=== PATIENT | male | born 1980 | race Caucasian/White ===

== ENCOUNTER 2016-09-18 10:37 | Emergency (ER) | payer MEDICARE, MEDICAID ==
[~2016-09-18] VITALS: Ht 175.3 cm; Wt 99.8 kg
[~2016-09-18 10:37] MED LIST: IPRA4AER IH; ONDA4TAB7 PO; OXYC-250 PO; PRED50TA PO; PROAIR HFA8.5 GM IH
[2016-09-18 10:41] VITALS: BP 131/72
--- NOTE | 2016-09-18 11:36 | EKG ---
[facility] [address] [place] [address] Test Date: 2016-09-18 Test Time: 10:40:13 Pat Name: CECI PAYNE Department: Room: Gender: M Oncology Social Work: : 1980 Requested By: STAFF NON Order Number: [id number] Reading MD: Elenita Taylor Measurements Intervals [place] Rate: 118 P: 79 ID: [id number] QRS: -29 QRSD: 92 T: 69 QT: 310 QTc: 437 Interpretive Statements SINUS TACHYCARDIA LEFTWARD AXIS INCOMPLETE RIGHT BUNDLE BRANCH BLOCK T ABNORMALITY IN HIGH LATERAL LEADS Electronically Signed On 09-20-2016 0:33:29 PROOF SORTER by Elenita Taylor
[2016-09-18] MEDS ORDERED: IV NORMAL SALINE 1000ML BAG 1,000 ML IV SCH (12:07)
[2016-09-18] MEDS ORDERED: methylPREDNISolone SOD SUCC PF 125 MG/2 ML VIAL. IV ONE (12:15)
[2016-09-18] MEDS ORDERED: IPRATRPIUM/ALBUTEROL 0.5/2.5MG 3 ML NEBU. NEB ONE (12:15)
[2016-09-18 12:40] LABS: OBC FLU VALID
[2016-09-18 12:48] LABS: BASO # 0.1 x10^3/uL (0.0-0.2); BASO % 1 % (0-3); EOS % 1 % (0-3); HEMATOCRIT 48.6 % (39.0-53.0); LYMPH # 1.4 x10^3/uL (1.0-4.8); LYMPH % 16 % (24-48); MEAN CORPUSCULAR HEMOGLOBIN 28 pg (25-35); MEAN CORPUSCULAR HGB CONC 33 g/dL (31-37); MEAN CORPUSCULAR VOLUME 84 fL (79-100); MONO % 10 % (0-9); NEUT % 72 % (31-73); PLATELET COUNT 165 x10^3/uL (140-400); RED BLOOD COUNT 5.77 x10^6/uL (4.30-5.70); RED CELL DISTRIBUTION WIDTH 15.6 % (11.5-14.5); WHITE BLOOD COUNT 8.6 x10^3/uL (4.0-11.0)
[2016-09-18 13:02] LABS: CALCIUM 9.7 mg/dL (8.5-10.1); POTASSIUM 4.4 mmol/L (3.5-5.1)
--- NOTE | 2016-09-18 13:07 | RAD ---
Portable chest, 09/18/2016: History: Cough, shortness of breath Comparison is made to a study from 06/08/2015. The heart size and pulmonary vascularity are within normal limits. No pulmonary infiltrates are seen. There is a calcified granuloma in the right base. There is no evidence of pleural fluid. IMPRESSION: No acute cardiopulmonary abnormality is detected.
[2016-09-18 13:08] LABS: ALBUMIN 3.9 g/dL (3.4-5.0); TOTAL BILIRUBIN 0.4 mg/dL (0.2-1.0)
[2016-09-18] MEDS ORDERED: PRED20TA PO (13:36)
[2016-09-18] MEDS ORDERED: PROAIR HFA8.5 GM INH (13:36)
--- NOTE | 2016-09-18 13:36 | PHYS DOC ---
Past Medical History Past Medical History: Asthma, COPD Additional Past Medical Histor: CMT, chronic back pain, NERVE DISORDER Past Surgical History: Other Additional Past Surgical Histo: ear tubes, ADENOIDS Alcohol Use: None Drug Use: None Adult General Chief Complaint Chief Complaint: SHORTNESS OF BREATH HPI HPI Patient is a 36 year old male who comes to the ED from home with the complaint of shortness of air today. Patient states he has COPD. He often takes prednisone but ran out about a month ago. When he takes it, he is on 20 mg daily. He also takes albuterol treatments at home, he does have a nebulizer. His last one was this morning. He has home oxygen for nighttime use. He's had a cough and also states he has had a fever to 101.6. The patient also has multiple other complaints. He states "I've been vomiting and pooping blood". He had a bleeding ulcer 3 months ago when he was hospitalized in [facility]. He had endoscopy and they "fixed it". He states he had to have 4 units of blood at that time. He had previously been on warfarin for history of pulmonary embolus but they took him off of it as a result of this bleed. Patient currently does not have a primary care physician. 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 Review of Systems Review of Systems Constitutional: As in history of present illness Eyes: Denies change in visual acuity, redness, or eye pain [] HENT: Denies nasal congestion or sore throat [] Respiratory: As in history of present illness Cardiovascular: No chest pain GI: As in history of present illness : Denies dysuria or hematuria [] Musculoskeletal: Denies back pain or joint pain [] Integument: Denies rash or skin lesions [] Neurologic: Denies headache, focal weakness or sensory changes [] Current Medications Current Medications Current Medications Medications (Trade) Dose Ordered Sig/Dipti Start Time Stop Time Status Last Admin Dose Admin Albuterol/ Ipratropium (Duoneb) 3 ml 1X ONCE 09/18/16 12:15 09/18/16 12:16 DC 09/18/16 12:21 3 ML Methylprednisolone Sodium Succinate (Solu-Medrol 125mg Vial) 60 mg 1X ONCE 09/18/16 12:15 09/18/16 12:16 DC 09/18/16 12:47 60 MG Sodium Chloride (Iv Sodium Chloride 0.9% 1000ml Bag) 1,000 ml @ 1,000 mls/hr Q1H 09/18/16 12:07 09/18/16 13:06 DC 09/18/16 12:47 1,000 MLS/HR Allergies Allergies Allergies Coded Allergies Type Severity Reaction Last Updated Verified Penicillins Allergy Intermediate hives 12/12/14 Yes tramadol Allergy Intermediate MORPHINE OK 12/12/14 No ibuprofen Adverse Reaction Intermediate "makes my stomach hurt, but I can take morphine" 12/12/14 No Physical Exam Physical Exam Constitutional: Well developed, well nourished, no acute distress, non-toxic appearance. Alert, mentating normally. Patient appears comfortable, not dyspneic , speaks in full sentences. HENT: Normocephalic, atraumatic, bilateral external ears normal, oropharynx moist, no oral exudates, nose normal. [] Eyes: conjunctiva normal, no discharge. [] Neck: Normal range of motion, no stridor. [] Cardiovascular:Heart rate regular rhythm, no murmur [] Lungs & Thorax: Expiratory wheezes throughout with good breath sounds in all lung kaur Abdomen: Bowel sounds normal, soft, no tenderness, no masses, no pulsatile masses. [] Skin: Warm, dry, no erythema, no rash. [] Extremities: No tenderness, no cyanosis, no clubbing, ROM intact, no edema. [] Neurologic: Alert and oriented X 3, normal motor function, normal sensory function, no focal deficits noted. [] Current Patient Data Vital Signs Vital Signs Date Time Temp Pulse Resp B/P Pulse Ox O2 Delivery O2 Flow Rate FiO2 09/18/16 14:00 100 20 99 Nasal Cannula 2 09/18/16 10:41 97.9 131/72 97.9 Lab Values Laboratory Tests Test 09/18/16 12:08 09/18/16 12:40 Influenza Type A Antigen Negative (NEGATIVE) Influenza Type B Antigen Negative (NEGATIVE) White Blood Count 8.6x10^3/uL (4.0-11.0) Red Blood Count 5.77x10^6/uL (4.30-5.70) H Hemoglobin 16.0g/dL (13.0-17.5) Hematocrit 48.6% (39.0-53.0) Mean Corpuscular Volume 84fL (79-100) Mean Corpuscular Hemoglobin 28pg (25-35) Mean Corpuscular Hemoglobin Concent 33g/dL (31-37) Red Cell Distribution Width 15.6% (11.5-14.5) H Platelet Count 165x10^3/uL (140-400) Neutrophils (%) (Auto) 72% (31-73) Lymphocytes (%) (Auto) 16% (24-48) L Monocytes (%) (Auto) 10% (0-9) H Eosinophils (%) (Auto) 1% (0-3) Basophils (%) (Auto) 1% (0-3) Neutrophils # (Auto) 6.1x10^3uL (1.8-7.7) Lymphocytes # (Auto) 1.4x10^3/uL (1.0-4.8) Monocytes # (Auto) 0.8x10^3/uL (0.0-1.1) Eosinophils # (Auto) 0.1x10^3/uL (0.0-0.7) Basophils # (Auto) 0.1x10^3/uL (0.0-0.2) Sodium Level 137mmol/L (136-145) Potassium Level 4.4mmol/L (3.5-5.1) Chloride Level 98mmol/L (98-107) Carbon Dioxide Level 32mmol/L (21-32) Anion Gap 7 (6-14) Blood Urea Nitrogen 8mg/dL (8-26) Creatinine 1.0mg/dL (0.7-1.3) Estimated GFR (Cockcroft-Gault) 85.0 BUN/Creatinine Ratio 8 (6-20) Glucose Level 84mg/dL (70-99) Calcium Level 9.7mg/dL (8.5-10.1) Total Bilirubin 0.4mg/dL (0.2-1.0) Aspartate Amino Transferase (AST) 16U/L (15-37) Alanine Aminotransferase (ALT) 24U/L (16-63) Alkaline Phosphatase 93U/L (46-116) Total Protein 8.0g/dL (6.4-8.2) Albumin 3.9g/dL (3.4-5.0) Albumin/Globulin Ratio 1.0 (1.0-1.7) Laboratory Tests 09/18/16 12:40 Laboratory Tests 09/18/16 12:40 EKG EKG 12-lead EKG read by me. Sinus tachycardia. Heart rate 118. There are no acute ST or T wave changes indicative of ischemia or infarction. No STEMI. 1040 [] Radiology/Procedures Radiology/Procedures Chest x-ray read by the radiologist no acute cardiopulmonary process. [] Course & Med Decision Making Course & Med Decision Making Pertinent Labs and Imaging studies reviewed. (See chart for details) 36-year-old male with a history of COPD who does have oxygen at home and also a nebulizer at home. He has had a fever, cough, and wheezing. He has not had prednisone in a month. He does continue to smoke. Lab and x-ray evaluation negative for pneumonia or other concerning finding today. He had 2 breathing treatments and felt quite a bit better. He is resting comfortably in the ED, no dyspnea, speaking in full sentences. He is comfortable being discharged. He was given information about primary care physician's here at [facility]. [] Dragon Disclaimer Dragon Disclaimer This electronic medical record was generated, in whole or in part, using a voice recognition dictation system. Departure Departure Impression: Primary Impression: Bronchitis Additional Impression: COPD exacerbation Disposition: HOME, SELF-CARE Condition: STABLE Referrals: NO PCP (PCP) Patient Instructions: Smoking Cessation, Tips For Success Additional Instructions: Take breathing treatments every 4 hours while awake until feeling better. I highly recommend that you do everything you can to quit smoking. It's important to have a primary care doctor, see below sure with names and phone numbers that we provided you. Scripts Prednisone 20 Mg Tablet1 Tab PO DAILY #5 TAB One daily for wheezing Start Prov:EARLINE CHIU MD 09/18/16 Albuterol Sulfate (Proair Hfa Inhaler)8.5 Gm Hfa.[id number].[id number] Puff INH PRN Q6HRS PRN SHORTNESS OF BREATH #1 INHALER Ref 0 2 puffs every 4 hours as needed for wheezing Use this or your nebulizer machine, not both Prov:EARLINE CHIU MD 09/18/16 Problem Qualifiers EARLINE CHIU MD Sep 18, 2016 13:36
== END 2016-09-18 14:06 | disposition home or self-care (01) ==
LOC: ER 10:37
DX: J44.1 Chronic obstructive pulmonary disease with (acute) exacerbation (principal); J40 Bronchitis, not specified as acute or chronic; J45.909 Unspecified asthma, uncomplicated; G89.29 Other chronic pain; R50.9 Fever, unspecified; F17.200 Nicotine dependence, unspecified, uncomplicated; Z99.81 Dependence on supplemental oxygen; Z86.711 Personal history of pulmonary embolism; Z88.0 Allergy status to penicillin; Z88.5 Allergy status to narcotic agent; Z88.8 Allergy status to other drugs, medicaments and biological substances
CPT/HCPCS: 36415; 71010; 80053; 85027; 87804; 93005; 94250; 94640; 96361; 96374; 99285; J2930; J7030; J7620

== ENCOUNTER 2016-10-01 19:58 | Inpatient (IN) | payer MEDICARE, MEDICAID ==
[~2016-10-01] VITALS: Ht 175.3 cm; Wt 108.5 kg
[~2016-10-01 19:58] MED LIST changes: +PRED20TA PO; +PROAIR HFA8.5 GM INH
[2016-10-01] MEDS ORDERED: IV NORMAL SALINE 1000ML BAG 1,000 ML IV SCH (20:35)
--- NOTE | 2016-10-01 20:35 | PHYS DOC ---
Past Medical History Past Medical History: Asthma, COPD, Additional Disease Additional Past Medical Histor: CMT, chronic back pain, NERVE DISORDER, pulmonary embolism Past Surgical History: Other Additional Past Surgical Histo: ear tubes, ADENOIDS Alcohol Use: None Drug Use: None Adult General Chief Complaint Chief Complaint: SHORTNESS OF BREATH HPI HPI Patient is a 36 year old male who presents with chest pain and shortness of breath. Patient reports he was recently admitted to [facility], where he was diagnosed with a pulmonary embolism. He says he was discharged with prescription of warfarin, which she has been taking the past 2 days. He also reports she has been tweaking 20 mg of prednisone for the past 2 days for a COPD exacerbation. He describes a sharp pain in left side of his chest that is worse with movement. He also reports feeling short of breath for the past week. In addition, he says for the past 2 days he has been having a small amount of blood per rectum. He has not taken anything for pain prior to coming to emergency department. Review of Systems Review of Systems Constitutional: Denies fever or chills Eyes: Denies change in visual acuity or eye pain HENT: Denies nasal congestion or sore throat Respiratory: Shortness of breath Cardiovascular: Sharp L sided chest pain GI: Blood in stool. Denies abdominal pain, nausea, vomiting, diarrhea : Denies dysuria or hematuria Musculoskeletal: Denies back pain or joint pain Integument: Denies rash or skin lesions Neurologic: Denies headache, focal weakness or sensory changes Current Medications Current Medications Current Medications Medications (Trade) Dose Ordered Sig/Dipti Start Time Stop Time Status Last Admin Dose Admin Albuterol/ Ipratropium (Duoneb) 3 ml 1X ONCE 10/01/16 20:45 10/01/16 21:00 DC 10/01/16 20:56 3 ML Morphine Sulfate 4 mg 1X ONCE 10/01/16 20:45 10/01/16 21:00 DC 10/01/16 20:55 4 MG Prednisone (Prednisone) 40 mg 1X ONCE 10/01/16 20:45 10/01/16 21:00 DC 10/01/16 20:54 40 MG Sodium Chloride (Iv Sodium Chloride 0.9% 1000ml Bag) 1,000 ml @ 1,000 mls/hr Q1H 10/01/16 20:35 10/01/16 21:34 DC 10/01/16 20:56 1,000 MLS/HR Allergies Allergies Allergies Coded Allergies Type Severity Reaction Last Updated Verified Penicillins Allergy Intermediate hives 12/12/14 Yes tramadol Allergy Intermediate MORPHINE OK 12/12/14 No ibuprofen Adverse Reaction Intermediate "makes my stomach hurt, but I can take morphine" 12/12/14 No Physical Exam Physical Exam Constitutional: Well developed, well nourished, no acute distress, non-toxic appearance HENT: Normocephalic, atraumatic, bilateral external ears normal Eyes: EOMI, conjunctiva normal, no discharge Neck: Normal range of motion, no stridor Cardiovascular: Tachycardic, regular rhythm, no murmur Lungs & Thorax: Tight, diffuse expiratory wheezing Abdomen: Bowel sounds normal, soft, non-distended, no TTP Rectal: Small amount brown stool in vault, no gross blood Skin: Warm, dry, no erythema, no rash Extremities: No obvious deformity, no edema Neurologic: Alert and oriented X 3, no gross deficits noted Current Patient Data Vital Signs Vital Signs Date Time Temp Pulse Resp B/P Pulse Ox O2 Delivery O2 Flow Rate FiO2 10/01/16 20:55 27 96 Room Air 10/01/16 20:52 2.5 10/01/16 20:17 115 138/71 10/01/16 20:03 98.5 98.5 Lab Values Laboratory Tests Test 10/01/16 20:15 10/01/16 21:33 White Blood Count 15.9x10^3/uL (4.0-11.0) H Red Blood Count 5.23x10^6/uL (4.30-5.70) Hemoglobin 14.5g/dL (13.0-17.5) Hematocrit 43.0% (39.0-53.0) Mean Corpuscular Volume 82fL (79-100) Mean Corpuscular Hemoglobin 28pg (25-35) Mean Corpuscular Hemoglobin Concent 34g/dL (31-37) Red Cell Distribution Width 16.0% (11.5-14.5) H Platelet Count 232x10^3/uL (140-400) Neutrophils (%) (Auto) 81% (31-73) H Lymphocytes (%) (Auto) 15% (24-48) L Monocytes (%) (Auto) 5% (0-9) Eosinophils (%) (Auto) 0% (0-3) Basophils (%) (Auto) 0% (0-3) Neutrophils # (Auto) 12.8x10^3uL (1.8-7.7) H Lymphocytes # (Auto) 2.3x10^3/uL (1.0-4.8) Monocytes # (Auto) 0.7x10^3/uL (0.0-1.1) Eosinophils # (Auto) 0.0x10^3/uL (0.0-0.7) Basophils # (Auto) 0.0x10^3/uL (0.0-0.2) Segmented Neutrophils % 81% (35-66) H Band Neutrophils % 1% (0-9) Lymphocytes % 15% (24-48) L Monocytes % 3% (0-10) Platelet Estimate Adequate (ADEQUATE) Prothrombin Time 11.1SEC (11.7-14.0) L Prothrombin Time INR 0.9 (0.8-1.1) PTT 22SEC (24-38) L Sodium Level 136mmol/L (136-145) Potassium Level 4.4mmol/L (3.5-5.1) Chloride Level 99mmol/L (98-107) Carbon Dioxide Level 27mmol/L (21-32) Anion Gap 10 (6-14) Blood Urea Nitrogen 21mg/dL (8-26) Creatinine 1.0mg/dL (0.7-1.3) Estimated GFR (Cockcroft-Gault) 85.0 Glucose Level 185mg/dL (70-99) H Calcium Level 8.8mg/dL (8.5-10.1) Total Bilirubin 0.2mg/dL (0.2-1.0) Direct Bilirubin < 0.1mg/dL (0.0-0.2) Aspartate Amino Transferase (AST) 19U/L (15-37) Alanine Aminotransferase (ALT) 45U/L (16-63) Alkaline Phosphatase 79U/L (46-116) Troponin I Quantitative < 0.017ng/mL (0.000-0.055) Total Protein 7.1g/dL (6.4-8.2) Albumin 3.3g/dL (3.4-5.0) L Stool Occult Blood Positive (NEG) Laboratory Tests 10/01/16 20:15 Laboratory Tests 10/01/16 20:15 EKG EKG EKG (my read): sinus tachycardia, rate 120, borderline LAD, no acute ischemic changes Radiology/Procedures Radiology/Procedures CXR (my read): 5mm opacity L lateral lung field, otherwise no acute abnormality Course & Med Decision Making Course & Med Decision Making Pertinent Labs and Imaging studies reviewed. (See chart for details) Patient is 36-year-old male who presents with chest pain and shortness of breath. He reports that he was recently diagnosed with PE, and started on warfarin. Chest x-ray, EKG, labs ordered to evaluate. DuoNeb's and dose of steroids ordered for wheezing. IV fluid bolus and pain meds ordered for relief of symptoms. I decided to obtain records from OSH rather than repeat CTA chest to save patient from additional radiation and contrast. EKG shows sinus tachycardia. Chest x-ray results as above. Labs notable for INR 0.9. Leukocytosis likely due to steroid use. Hemoglobin within normal limits. Discussed results with patient. After deliberation, decision made to start heparin while arranging records from [facility] for treatment of PE given subtherapeutic INR; PE considered to be higher risk than small amount of occult blood in stool given normal hemoglobin level. Heparin chosen for ability to quickly discontinue if GI bleed became more serious. However, prior to heparin and given the records from outside hospital arrived which showed that the CTA that was done did not reveal PE. Therefore, ordered for heparin stopped. Patient does however remained tachycardic and symptomatic. Discussed with Dr. Michel, will admit under her care for further evaluation and treatment. Dragon Disclaimer Dragon Disclaimer This electronic medical record was generated, in whole or in part, using a voice recognition dictation system. Departure Departure Impression: Primary Impression: Chest pain Additional Impression: SOB (shortness of breath) Disposition: 09 ADMITTED INPATIENT Admitting Physician: Edward Michel Condition: GUARDED Referrals: NO PCP (PCP) Problem Qualifiers RAISSA NEW MD Oct 01, 2016 20:35
[2016-10-01] MEDS ORDERED: PREDNISONE 20 MG TABLET PO ONE (20:45)
[2016-10-01] MEDS ORDERED: IPRATRPIUM/ALBUTEROL 0.5/2.5MG 3 ML NEBU. NEB ONE (20:45)
[2016-10-01] MEDS ORDERED: MORPHINE SULFATE 4 MG/ML DISP.SYRIN. IV ONE (20:45)
[2016-10-01 20:46] LABS: BASO % 0 % (0-3); EOS % 0 % (0-3); HEMOGLOBIN 14.5 g/dL (13.0-17.5); LYMPH # 2.3 x10^3/uL (1.0-4.8); LYMPH % 15 % (24-48); MEAN CORPUSCULAR HEMOGLOBIN 28 pg (25-35); MEAN CORPUSCULAR HGB CONC 34 g/dL (31-37); MEAN CORPUSCULAR VOLUME 82 fL (79-100); MONO % 5 % (0-9); NEUT % 81 % (31-73); PLATELET COUNT 232 x10^3/uL (140-400); RED BLOOD COUNT 5.23 x10^6/uL (4.30-5.70); WHITE BLOOD COUNT 15.9 x10^3/uL (4.0-11.0)
[2016-10-01 20:56] LABS: INR 0.9 (0.8-1.1); PROTHROMBIN TIME PATIENT 11.1 SEC (11.7-14.0)
[2016-10-01 21:01] LABS: ANION GAP 10 (6-14); BLOOD UREA NITROGEN 21 mg/dL (8-26); CALCIUM 8.8 mg/dL (8.5-10.1); CARBON DIOXIDE 27 mmol/L (21-32); CHLORIDE 99 mmol/L (98-107); GLUCOSE 185 mg/dL (70-99); POTASSIUM 4.4 mmol/L (3.5-5.1); SODIUM 136 mmol/L (136-145)
[2016-10-01 21:07] LABS: ALBUMIN 3.3 g/dL (3.4-5.0); ALK PHOS 79 U/L (46-116); ALT (SGPT) 45 U/L (16-63); AST (SGOT) 19 U/L (15-37); DIRECT BILIRUBIN < 0.1 mg/dL (0.0-0.2); TOTAL BILIRUBIN 0.2 mg/dL (0.2-1.0); TOTAL PROTEIN 7.1 g/dL (6.4-8.2)
[2016-10-01 21:52] LABS: PLT ESTIMATE ADEQUATE (ADEQUATE)
[2016-10-01 21:54] LABS: NEG OBC FOB NEG; POS OBC FOB POS
[2016-10-01] MEDS ORDERED: ONDANSETRON PF 4 MG/2 ML VIAL. IV PRN (23:15)
[2016-10-01] MEDS ORDERED: HEPARIN for IV BOLUS 10,000 UNIT/10 ML VIAL. IV ONE (23:15)
[2016-10-01] MEDS ORDERED: ACETAMINOPHEN 325 MG TABLET. PO PRN (23:15)
[2016-10-01] MEDS ORDERED: HEPARIN 25,000UTS/500ML PREMIX 500 ML IV PRN (23:15)
[2016-10-01] MEDS ORDERED: HEPARIN for IV BOLUS 10,000 UNIT/10 ML VIAL. IV PRN ×2 (23:15)
[2016-10-02 00:30] VITALS: BP 133/86
[2016-10-02 01:33] VITALS: BP 133/86
[2016-10-02 03:00] VITALS: BP 130/80
[2016-10-02] MEDS: MORPHINE SULFATE 4 MG/ML DISP.SYRIN. IV PRN ×2 (03:03→08:40)
[2016-10-02 05:18] LABS: BASO % 0 % (0-3); EOS % 0 % (0-3); HEMATOCRIT 42.4 % (39.0-53.0); HEMOGLOBIN 13.8 g/dL (13.0-17.5); LYMPH % 9 % (24-48); MEAN CORPUSCULAR HEMOGLOBIN 27 pg (25-35); MEAN CORPUSCULAR HGB CONC 32 g/dL (31-37); MEAN CORPUSCULAR VOLUME 84 fL (79-100); MONO % 3 % (0-9); NEUT % 88 % (31-73); PLATELET COUNT 198 x10^3/uL (140-400); RED BLOOD COUNT 5.04 x10^6/uL (4.30-5.70); WHITE BLOOD COUNT 11.3 x10^3/uL (4.0-11.0)
[2016-10-02 06:09] LABS: CALCIUM 9.3 mg/dL (8.5-10.1); CREATININE 0.9 mg/dL (0.7-1.3); POTASSIUM 4.8 mmol/L (3.5-5.1)
--- NOTE | 2016-10-02 06:24 | EKG ---
[facility] [address] [place] [address] Test Date: 2016-10-01 Test Time: 20:08:48 Pat Name: CECI PAYNE Department: Room: 558 1 Gender: M Nursing Assistant: : 1980 Requested By: RAISSA NEW Order Number: [id number] Reading MD: Jewel Marvin Measurements Intervals [place] Rate: 120 P: 3 MN: 138 QRS: 0 QRSD: 88 T: 62 QT: 298 QTc: 426 Interpretive Statements SINUS TACHYCARDIA Electronically Signed On 10-14-2016 9:30:14 BOTTLE LABELER by Jewel Marvin
[2016-10-02 07:00] VITALS: BP 125/81
--- NOTE | 2016-10-02 08:04 | RAD ---
Portable chest, 10/01/2016: History: Shortness of breath Comparison is made to a study from 09/18/2016. The heart size and pulmonary vascularity are normal. There is a calcified granuloma in the right base. No acute infiltrates are seen. There is no evidence of pleural fluid. IMPRESSION: No acute cardiopulmonary abnormality is detected.
[2016-10-02] MEDS: IPRATRPIUM/ALBUTEROL 0.5/2.5MG 3 ML NEBU. NEB SCH ×3 (08:11→15:18)
[2016-10-02] MEDS ORDERED: IOHEXOL 350 MG/ML 100ML VIAL. IV ONE (09:45)
[2016-10-02] MEDS ORDERED: CONTRAST GIVEN MC PRN (09:45)
[2016-10-02] MEDS ORDERED: IOHEXOL 300 MG/ML 75 ML VIAL IV ONE (10:15)
--- NOTE | 2016-10-02 10:28 | DISCH ---
DISCHARGE INSTRUCTIONS Condition on Discharge Condition on Discharge: Stable Activity After Discharge Activity Instructions for Disc: No restrictions Diet after Discharge Diet after Discharge: [place] Contacting the DR. after DC Call your doctor for: If your condition worsens Follow-Up Follow up with: PCp in 1 week [place] GARCIA MD Oct 02, 2016 10:28
[2016-10-02] MEDS ORDERED: GUAI600T38 PO (10:32)
[2016-10-02] MEDS ORDERED: PANT20TA2 PO (10:32)
[2016-10-02 10:55] VITALS: BP 126/78
--- NOTE | 2016-10-02 14:40 | RAD ---
Exam performed: CT angiogram chest. History: Chest and back pain, shortness of air for one week. Date of service: 10/02/16. Comparison: CT chest from 03/15/09. Technique: Contiguous helical acquisitions are obtained through the chest during intravenous administration of 75 cc of Omnipaque 300. Flash and coronal MIP images are obtained and reviewed. Findings: Structures at the thoracic inlet including both lobes of the thyroid gland appear normal. The neck and intrathoracic great vessels are normal in course and caliber. Adequate opacification of the pulmonary arteries. No filling defects to suggest pulmonary embolism is noted. No mediastinal or hilar adenopathy seen. Central airways patent without endoluminal lesions. Interrogation of lungs demonstrates no focal infiltrates or nodules. No pleural effusion or pneumothorax. Impression: 1. Study is negative for pulmonary embolism. 2. No additional abnormality seen. PQRS Compliance Statement: One or more of the following individualized dose reduction techniques were utilized for this examination: 1. Automated exposure control 2. Adjustment of the mA and/or kV according to patient size 3. Use of iterative reconstruction technique
[2016-10-02 14:52] VITALS: BP 99/45
--- NOTE | 2016-10-02 19:02 | SSS ---
ADMIT DATE: 10/02/2016 CHIEF COMPLAINT: Chest pain. HISTORY OF PRESENT ILLNESS: The patient is a 36-year-old gentleman who presented to the Emergency Room with chest pain associated with some shortness of breath. On further questioning, he actually relates that he has had symptoms for quite a while and had been recently admitted at for pneumonia and COPD exacerbation and is still on steroids. Prior to his admission, he was actually at [facility] where he apparently had been found with a PE. He had been started on warfarin there, but according to him, medication was stopped when he was found to be bleeding from his rectum. He has not been on any blood thinners since. In the Emergency Room, OB stool was still positive. CTA of the chest was not repeated in the ER. PAST MEDICAL HISTORY: PE as above, COPD with recent exacerbation, Uaaxalc-Wjzuh-Aftgp disease. FAMILY HISTORY: Significant for COPD in sibs. Father of lung cancer. SOCIAL HISTORY: Lives by himself. Quit smoking 9 months ago. Denies any toxic habits. ALLERGIES: PENICILLIN, IBUPROFEN, and TRAMADOL. MEDICATIONS: MAR reconciled with home medications. REVIEW OF SYSTEMS: Essentially positive as per HPI. Also, has some cough which worsens the chest pain. Cough remains productive and has been going on for several weeks. PHYSICAL EXAMINATION: VITAL SIGNS: From today show a blood pressure of 126/78, heart rate at 95, respiratory rate at 18. He is afebrile, satting 97 on room air. GENERAL: This is an obese 36-year-old gentleman, alert and oriented, in no acute distress. HEENT: Shows no scleral icterus. Oral mucosa is pink and moist. NECK: Supple. LUNGS: Clear to auscultation bilaterally. HEART: Regular rate and rhythm without any murmurs. ABDOMEN: Has positive bowel sounds, soft, nontender. EXTREMITIES: Show no edema. LABORATORY DATA: CBC from today shows a WBC of 11.3, decreased from 15.9 yesterday; hemoglobin 13.8, platelets at 198, BUN and creatinine of 22 and 0.9. Electrolytes within normal limits as are LFTs. Troponin was negative. Occult stool positive. IMAGING: Chest x-ray obtained in the Emergency Room showed no acute cardiopulmonary abnormality. CTA of the chest was negative for any PE. ASSESSMENT AND PLAN: The patient is a 36-year-old gentleman with Slqsygg-Zroww-Oxxjs disease, hypertension, chronic obstructive pulmonary disease, and recent pneumonia as well as reported history of pulmonary embolism. Not on anticoagulation secondary to gastrointestinal bleed. Chest pain is not new for him. I have a suspicion that he is drug seeking as he is specifically asking for Codeine. With negative findings otherwise, he is cleared to be discharged today. DISCHARGE DATE: 10/02/2016. DISCHARGE DISPOSITION: To home. DISCHARGE CONDITION: Improved. DISCHARGE DIAGNOSES: Chest wall pain. DISCHARGE MEDICATIONS: Please refer to MAR. DISCHARGE INSTRUCTIONS: The patient will follow up with PCP GEORGE. [place] GARCIA MD DR: UR/nts JOB#: [id number] / [id number] XIOMARA
== END 2016-10-02 17:00 | disposition home or self-care (01) | DRG 313 ==
LOC: ER 19:58 → 5 SOUTH 22:59
PROVIDERS: ADMIT Internal Medicine; ATTEND Internal Medicine
DX: R07.89 Other chest pain (principal); K62.5 Hemorrhage of anus and rectum; Z86.711 Personal history of pulmonary embolism; J44.9 Chronic obstructive pulmonary disease, unspecified; G60.0 Hereditary motor and sensory neuropathy; Z82.5 Family history of asthma and other chronic lower respiratory diseases; Z80.1 Family history of malignant neoplasm of trachea, bronchus and lung; Z87.891 Personal history of nicotine dependence; E66.9 Obesity, unspecified; I10 Essential (primary) hypertension; J45.909 Unspecified asthma, uncomplicated; Z87.01 Personal history of pneumonia (recurrent); Z88.6 Allergy status to analgesic agent; Z68.35 Body mass index [BMI] 35.0-35.9, adult; Z88.5 Allergy status to narcotic agent; Z88.0 Allergy status to penicillin; Z79.899 Other long term (current) drug therapy; Z98.890 Other specified postprocedural states
CPT/HCPCS: 36415; 71010; 71275; 80048; 80076; 82274; 84484; 85007; 85027; 85610; 85730; 93005; 94250; 94640; 94760; 96361; 96374; J2270; J7030; J7512; J7620; Q9967; 99285-25

== ENCOUNTER 2017-02-02 13:34 | Inpatient (IN) | payer MEDICARE, MEDICAID ==
[~2017-02-02] VITALS: Ht 175.3 cm; Wt 105.4 kg
[~2017-02-02 13:34] MED LIST changes: +GUAI600T38 PO; +PANT20TA2 PO
--- NOTE | 2017-02-02 14:07 | RAD ---
Indication: Weakness and chest pain. Time of exam 1400 hours. Correlation is made with prior chest from 10/01/2016. The heart size is stable. Calcified granuloma right lower lobe is unchanged. Lungs are clear. No infiltrate is detected. No effusion or pneumothorax is seen. Impression: Stable chest. No acute feature is detected.
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
[2017-02-02] MEDS ORDERED: ONDANSETRON PF 4 MG/2 ML VIAL. IV PRN (15:00)
[2017-02-02] MEDS ORDERED: NON FORMULARY ITEM (Albuterol Sulfate (Proair Hfa Inhaler) 1 PUFF) INH PRN (16:15)
[2017-02-02] MEDS ORDERED: NON FORMULARY ITEM (Albuterol Sulfate (Proair Hfa Inhaler) 2 PUFF) IH PRN (16:15)
[2017-02-02] MEDS ORDERED: ONDANSETRON ODT 4 MG TAB.RAPDIS. PO PRN (16:15)
[2017-02-02] MEDS ORDERED: ACETAMINOPHEN 500 MG TABLET PO PRN (16:15)
[2017-02-02] MEDS ORDERED: ALBUTEROL SULFATE 2.5 MG/3 ML NEBU. NEB PRN (16:15)
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
--- NOTE | 2017-02-02 16:19 | ACF ---
Admission Forms Criteria MENTAL STATUS CHANGE Clinical Indications for Inpatient Care (Place 'X' for any and all applicable criteria): Ongoing inpatient care may be needed for 1 or more of the following(1)(2)(3)(5)( 6): [X]I. Suspected serious etiology (eg, medical disorder, LAW ENFORCEMENT INSTRUCTOR event) of altered mental status [ ]II. Danger to self or others not manageable at lower level of care [ ]III. Grave disability (eg, inability to perform self care necessary at lower level of care) [ ]IV. Agitation or inappropriate behavior interfering with care for primary condition (eg, attempting to discontinue lines or drains prematurely, unable to cooperate with respiratory care) [ ]V. Delirium [A] [D][E] as described by 1 or more of the following(26): [ ]a) Delirium due to alcohol or sedative [F] withdrawal [ ]b) Delirium of uncertain etiology that has not responded to appropriate empiric treatment [ ]c) Delirium that prevents performance of a life-sustaining function (eg, feeding or hydrating oneself) [X]. General contraindications and/or Inappropriate clinical situations for Observational Care in patients with Mental Status Change, when ANY ONE of the following is required: [ ]a) Prediction of prolongation of LOS based on ANY ONE of the following may be considered as a contraindication for observational care 2, 3, 4, 5, 6, 7, 8, 9, 10, 11 [ ]i) Age > 65 yrs. [ ]ii) Patient arriving by ambulance [ ]iii) Patient with high acuity [ ]iv) Patient requiring vital sign monitoring [ ]v) Patient on IV medication [ ]b) Systolic blood pressures greater than or equal to 180mmHg 3, 12 [X]c) Patient with altered mental status including delirium and other alteration of consciousness, (3) [ ]d) Patient whose discharge disposition will be to a nursing home home or rehabilitation home should not be managed in Emergency Department Observation Unit. CMS rule requires 3 days hospital stay before such placement.3,13 [ ]e) Patient with failure to thrive due to broad array of etiologies 3,16,17 [ ]f) Inability to ambulate 3,14 Extended stay beyond goal length of stay for the primary condition may be needed until ALL of the following are present(3)(5): [ ]a) Underlying medical etiology of mental status change is absent, or has been established and adequately treated [ ]b) Danger to self or others is absent or manageable at lower level of care. [ ]c) Behavior crisis management, including physical or chemical restraints, is not required or available at lower level of car [ ]d) Substance or alcohol withdrawal is absent or manageable at lower level of care. [ ]e) Behavioral symptoms (eg, agitation, somnolence, inappropriate behavior) are absent, or are manageable at lower level of care. The original [facility] [employer] content created by [facility] has been revised. The portions of the content which have been revised are identified through the use of italic text or in bold, and [facility] has neither reviewed nor approved the modified material. All other unmodified content is copyright [facility]. Please see references footnoted in the original [facility] edition 2016 Admission Criteria Met?: Yes GARIMA HENLEY Feb 02, 2017 16:19
[2017-02-02 16:27] LABS: BASO # 0.2 x10^3/uL (0.0-0.2); BASO % 1 % (0-3); EOS % 1 % (0-3); HEMATOCRIT 46.6 % (39.0-53.0); HEMOGLOBIN 15.9 g/dL (13.0-17.5); LYMPH # 2.7 x10^3/uL (1.0-4.8); LYMPH % 11 % (24-48); MEAN CORPUSCULAR HEMOGLOBIN 29 pg (25-35); MEAN CORPUSCULAR HGB CONC 34 g/dL (31-37); MEAN CORPUSCULAR VOLUME 86 fL (79-100); MONO % 6 % (0-9); NEUT % 81 % (31-73); PLATELET COUNT 295 x10^3/uL (140-400); RED BLOOD COUNT 5.43 x10^6/uL (4.30-5.70); RED CELL DISTRIBUTION WIDTH 13.7 % (11.5-14.5); WHITE BLOOD COUNT 23.9 x10^3/uL (4.0-11.0)
[2017-02-02 16:36] LABS: INR 1.1 (0.8-1.1); PROTHROMBIN TIME PATIENT 13.2 SEC (11.7-14.0)
[2017-02-02 16:38] LABS: CALCIUM 9.8 mg/dL (8.5-10.1); CREATININE 1.4 mg/dL (0.7-1.3); GFR 57.7
[2017-02-02 16:41] LABS: ETHANOL < 10 mg/dL (0-10)
[2017-02-02 16:44] LABS: ALBUMIN/GLOBULIN RATIO 0.9 (1.0-1.7); MAGNESIUM 2.1 mg/dL (1.8-2.4); TOTAL BILIRUBIN 0.8 mg/dL (0.2-1.0); TOTAL PROTEIN 8.3 g/dL (6.4-8.2)
[2017-02-02] MEDS ORDERED: predniSONE 20 MG TABLET PO SCH (17:00)
[2017-02-02] MEDS ORDERED: PANTOPRAZOLE 40 MG TABLET.DR. PO SCH (17:00)
[2017-02-02] MEDS ORDERED: NON FORMULARY ITEM (Ipratropium/Albuterol Sulfate (Combivent Respimat Inhal) 2 INH) IH SCH (17:00)
[2017-02-02] MEDS: ONDANSETRON PF 4 MG/2 ML VIAL. IV PRN ×2 (17:20→22:44)
[2017-02-02] MEDS: oxyCODONE/APAP 10/325 1 TAB TABLET PO PRN ×2 (17:21→22:43)
[2017-02-02] MEDS: IV NORMAL SALINE 1000ML BAG 1,000 ML IV SCH ×2 (17:27→23:15)
[2017-02-02 17:28] LABS: % EOS 2 % (0-5); PLT ESTIMATE ADEQUATE (ADEQUATE)
[2017-02-02 18:15] VITALS: BP 87/30
[2017-02-02] MEDS ORDERED: NICOTINE 21MG PATCH. TD SCH (18:30)
[2017-02-02] MEDS: IPRATRPIUM/ALBUTEROL 0.5/2.5MG 3 ML NEBU. NEB SCH ×2 (18:59→20:00)
[2017-02-02 19:00] VITALS: BP 115/73
[2017-02-02 23:00] VITALS: BP 124/74
[2017-02-03 03:00] VITALS: BP 125/76
[2017-02-03 04:31] LABS: BASO % 0 % (0-3); EOS % 0 % (0-3); HEMATOCRIT 40.6 % (39.0-53.0); HEMOGLOBIN 13.6 g/dL (13.0-17.5); LYMPH # 0.9 x10^3/uL (1.0-4.8); LYMPH % 7 % (24-48); MEAN CORPUSCULAR HEMOGLOBIN 29 pg (25-35); MEAN CORPUSCULAR HGB CONC 34 g/dL (31-37); MEAN CORPUSCULAR VOLUME 86 fL (79-100); MONO % 3 % (0-9); NEUT % 89 % (31-73); PLATELET COUNT 237 x10^3/uL (140-400); RED BLOOD COUNT 4.71 x10^6/uL (4.30-5.70); RED CELL DISTRIBUTION WIDTH 13.3 % (11.5-14.5); WHITE BLOOD COUNT 13.2 x10^3/uL (4.0-11.0)
[2017-02-03 04:51] LABS: CALCIUM 8.6 mg/dL (8.5-10.1); POTASSIUM 4.3 mmol/L (3.5-5.1)
--- NOTE | 2017-02-03 06:10 | EKG ---
[facility] [address] [place] [id number] Test Date: 2017-02-02 Test Time: 13:39:20 Pat Name: CECI PYANE Department: Room: Gender: M [employer]: : 1980 Requested By: INDIA VALENZUELA Order Number: [id number] Reading MD: Measurements Intervals [place] Rate: 132 P: 37 NV: 146 QRS: 13 QRSD: 90 T: 71 QT: 298 QTc: 445 Interpretive Statements SINUS TACHYCARDIA S1,S2,S3 PATTERN QRS(T) CONTOUR ABNORMALITY CONSIDER ANTEROSEPTAL MYOCARDIAL DAMAGE T ABNORMALITY IN HIGH LATERAL LEADS RI6.01 Unconfirmed report No previous ECG available for comparison
[2017-02-03 07:00] VITALS: BP 130/86
[2017-02-03] MEDS: IPRATRPIUM/ALBUTEROL 0.5/2.5MG 3 ML NEBU. NEB SCH (08:00)
[2017-02-03] MEDS ORDERED: NON FORMULARY ITEM (Prednisone 50 MG) PO SCH (09:00)
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
== END 2017-02-03 09:43 | disposition home or self-care (01) | DRG 88 ==
LOC: ER 13:34 → EEVIPCON 15:56 → 6 SOUTH 15:56
PROVIDERS: ADMIT Internal Medicine; ATTEND Internal Medicine
DX: S06.0X9A Concussion with loss of consciousness of unspecified duration, initial encounter (principal); G93.40 Encephalopathy, unspecified; F17.210 Nicotine dependence, cigarettes, uncomplicated; I10 Essential (primary) hypertension; J44.9 Chronic obstructive pulmonary disease, unspecified; K21.9 Gastro-esophageal reflux disease without esophagitis; M14.679 Charcot's joint, unspecified ankle and foot; G60.0 Hereditary motor and sensory neuropathy; G89.29 Other chronic pain; M54.9 Dorsalgia, unspecified; M19.90 Unspecified osteoarthritis, unspecified site; Z86.711 Personal history of pulmonary embolism; Z87.11 Personal history of peptic ulcer disease; Z88.0 Allergy status to penicillin; Z88.6 Allergy status to analgesic agent; Y08.89XA Assault by other specified means, initial encounter; Y93.89 Activity, other specified; Y92.89 Other specified places as the place of occurrence of the external cause; Y99.8 Other external cause status
CPT/HCPCS: 36415; 70450; 71010; 80048; 80053; 82550; 83605; 83735; 83880; 84443; 84484; 85007; 85027; 85610; 85730; 93005; 94250; 94640; G0480; J2405; J7030; J7512; J7620; Q0162; 99285-25

== ENCOUNTER 2017-03-02 13:14 | Inpatient (IN) | payer MEDICARE, MEDICAID ==
[~2017-03-02] VITALS: Ht 175.3 cm; Wt 109.4 kg
[~2017-03-02 13:14] MED LIST changes: -GUAI600T38 PO; +GUAI600T47 PO; -OXYC-250 PO; +OXYC-328 PO
[2017-03-02] MEDS ORDERED: IV NORMAL SALINE 1000ML BAG 1,000 ML IV SCH (13:38)
[2017-03-02] MEDS ORDERED: GLYCOPYRROLATE 1 MG/5 ML VIAL. IV ONE (13:45)
[2017-03-02] MEDS ORDERED: 0.9 % SODIUM CHLORIDE 10 ML DISP.SYRIN. IV PRN (13:45)
[2017-03-02] MEDS ORDERED: methylPREDNISolone SOD SUCC PF 125 MG/2 ML VIAL. IV ONE (13:45)
[2017-03-02] MEDS ORDERED: ONDANSETRON PF 4 MG/2 ML VIAL. IV ONE (13:45)
[2017-03-02] MEDS ORDERED: IPRATRPIUM/ALBUTEROL 0.5/2.5MG 3 ML NEBU. NEB ONE (13:45)
--- NOTE | 2017-03-02 13:49 | PHYS DOC ---
Past Medical History Past Medical History: Asthma, COPD, Additional Disease Additional Past Medical Histor: CMT, chronic back pain, NERVE DISORDER, pulmonary embolism Past Surgical History: Other Additional Past Surgical Histo: ear tubes, ADENOIDS Alcohol Use: None Drug Use: None Adult General Chief Complaint Chief Complaint: SHORTNESS OF BREATH HPI HPI Patient is a 36 year old male with a history of COPD, [place]-Ecydg disease with peripheral neuropathy, hypertension, prior pneumonia who presents today with nausea, vomiting and diarrhea. Since began 2 days ago after he was released 2 days earlier from [facility] for pneumonia treatment. Patient is a low-grade fever 101.2 through an ear thermometer. He denies any recent travel outside the country, recent sick contacts as he lives alone he is unemployed on disability. He says fever was improved with Tylenol. His abdominal pain is only when he has nausea and vomiting. The vomiting is been nonbilious nonbloody, diarrhea nonmucoid and nonbloody as well. She denies any trauma, night sweats, weight loss, chest pain with cough, URI symptoms or other symptoms related to his nausea vomiting diarrhea. Patient is normally on 3 L nasal cannula several times and is using an inhaler 4 times a day without a spacer. Differential diagnosis: Acute myocardial ischemia, heart failure, cardiac tamponade, bronchospasm, pulmonary embolism, pneumothorax, pulmonary infection i.e. bronchitis or pneumonia, upper airway obstruction, anaphylaxis, aspiration , psychogenic, pulmonary contusion, toxidrome, pneumomediastinum, noncardiogenic pulmonary edema or ARDS, COPD, tuberculosis, cystic fibrosis, asthma, high altitude pulmonary edema, valvular dysfunction, cardiac dysrhythmia , stroke, neuromuscular diseases like myasthenia gravis gravis, ALS, Guillain- Camargo syndrome, metabolic acidosis to include diabetic ketoacidosis, sepsis, and obstructive disorders like massive obesity Review of Systems Review of Systems Constitutional: He does complain of fever and chills to 101.2 Eyes: Denies change in visual acuity, redness, or eye pain [] HENT: Denies nasal congestion or sore throat [] Respiratory: Denies cough or shortness of breath [] Cardiovascular: No additional information not addressed in HPI [] GI: Planes of diffuse crampy abdominal pain with nausea vomiting and diarrhea. : Denies dysuria or hematuria [] Musculoskeletal: Denies back pain or joint pain [] Integument: Denies rash or skin lesions [] Neurologic: Denies headache, focal weakness or dysarthria from chronic paresthesias Endocrine: Denies polyuria or polydipsia [] Current Medications Current Medications Current Medications Medications (Trade) Dose Ordered Sig/Dipti Start Time Stop Time Status Last Admin Dose Admin Albuterol/ Ipratropium (Duoneb) 3 ml 1X ONCE 03/02/17 13:45 03/02/17 13:47 DC 03/02/17 13:52 3 ML Fentanyl Citrate (Fentanyl 2ml Vial) 25 mcg PRN Q15MIN PRN 03/02/17 13:45 03/03/17 13:44 03/02/17 14:20 25 MCG Glycopyrrolate (Robinul) 1 mg 1X ONCE 03/02/17 13:45 03/02/17 13:49 DC 03/02/17 14:22 1 MG Methylprednisolone Sodium Succinate (SOLU-Medrol 125MG VIAL) 125 mg 1X ONCE 03/02/17 13:45 03/02/17 13:47 DC 03/02/17 14:18 125 MG Ondansetron HCl (Zofran) 4 mg 1X ONCE 03/02/17 13:45 03/02/17 13:47 DC 03/02/17 14:16 4 MG Sodium Chloride (Normal Saline Flush) 10 ml QSHIFT PRN 03/02/17 13:45 Allergies Allergies Allergies Coded Allergies Type Severity Reaction Last Updated Verified Penicillins Allergy Intermediate hives 12/12/14 Yes tramadol Allergy Intermediate MORPHINE OK 10/02/16 Yes ibuprofen Adverse Reaction Intermediate "makes my stomach hurt, but I can take morphine" 10/02/16 Yes Physical Exam Physical Exam Vital signs reviewed demonstrate hypertension tachypnea without fever, hypoxia Constitutional: Well developed, patient very diaphoretic obviously uncomfortable but nontoxic in appearance he is only mildly tachypnea there is no obvious retractions. [] HENT: Normocephalic, atraumatic, bilateral external ears normal, oropharynx moist, no oral exudates, nose normal. [] Eyes: PERRLA, EOMI, conjunctiva normal, no discharge. [] Neck: Normal range of motion, no tenderness, supple, no stridor. [] Cardiovascular:Heart rate regular rhythm, no murmur [] Lungs & Thorax: Breath sounds with considerable wheezing all lungs kaur with coarse crackles crackles and rales the base. Abdomen: Active bowel sounds abdomen soft there is no focal tenderness in the right upper quadrant and left lower quadrant of the right lower quadrant patient has no Malone's or McBurney's point tenderness to palpation of guarding rebound or organomegaly Skin: Warm, diaphoretic, no erythema, no rash. [] Back: No tenderness, no CVA tenderness. [] Extremities: No tenderness, no cyanosis, no clubbing, ROM intact, no edema. [] Neurologic: Alert and oriented X 3, normal motor function, normal sensory function, no focal deficits noted. [] Psychologic: Affect normal, judgement normal, mood normal. [] Current Patient Data Vital Signs Vital Signs Date Time Temp Pulse Resp B/P (MAP) Pulse Ox O2 Delivery O2 Flow Rate FiO2 03/02/17 14:20 14 96 Room Air 03/02/17 13:40 98.1 105 130/82 (98) 98.1 Lab Values Laboratory Tests Test 03/02/17 14:28 White Blood Count 16.5 x10^3/uL (4.0-11.0) H Red Blood Count 4.61 x10^6/uL (4.30-5.70) Hemoglobin 13.1 g/dL (13.0-17.5) Hematocrit 39.2 % (39.0-53.0) Mean Corpuscular Volume 85 fL (79-100) Mean Corpuscular Hemoglobin 28 pg (25-35) Mean Corpuscular Hemoglobin Concent 33 g/dL (31-37) Red Cell Distribution Width 13.6 % (11.5-14.5) Platelet Count 255 x10^3/uL (140-400) Neutrophils (%) (Auto) 74 % (31-73) H Lymphocytes (%) (Auto) 18 % (24-48) L Monocytes (%) (Auto) 7 % (0-9) Eosinophils (%) (Auto) 0 % (0-3) Basophils (%) (Auto) 1 % (0-3) Neutrophils # (Auto) 12.2 x10^3uL (1.8-7.7) H Lymphocytes # (Auto) 3.0 x10^3/uL (1.0-4.8) Monocytes # (Auto) 1.2 x10^3/uL (0.0-1.1) H Eosinophils # (Auto) 0.0 x10^3/uL (0.0-0.7) Basophils # (Auto) 0.1 x10^3/uL (0.0-0.2) Laboratory Tests 03/02/17 14:28 EKG EKG Initial EKG done at [address] Terry 03/02/2017 demonstrates sinus tachycardia with axis deviation otherwise normal looking EKG with no evidence of Brugada syndrome, the WPW or prolonged QT. [] EKG #2 at 1437 was after albuterol inhalers and nebs treatments 701 2016 straight sinus tachycardia with heart rate of 123. Alcohol is normal at 138 QRS of normal at 96 QTC normal at 467 again sinus tachycardia with no evidence of ST segment or T-wave changes consistent with ischemia. Read by Dr. Terry Radiology/Procedures Radiology/Procedures [] [facility] [address] [place] [address] IMAGING REPORT Signed PATIENT: CECI PAYNE ACCOUNT: [id number] : 1980 LOCATION: ER AGE: 36 SEX: M EXAM STATUS: PRE ER ORD. PHYSICIAN: CHAVO TERRY MD REASON: cough sob PROCEDURE: CHEST PA & LATERAL Chest, 2 views, 03/02/2017: History: Cough, shortness of breath Comparison is made to a study from 02/02/2017. The heart size and pulmonary vascularity are normal. There is a calcified granuloma in the right middle lobe. No acute infiltrate is seen. There is no evidence of pleural fluid. IMPRESSION: No acute cardiopulmonary abnormality is detected. DICTATED and SIGNED BY: LANE NOBLES MD DATE: 03/02/17 0544 CC: CHAVO TERRY MD; NO PCP ~ Course & Med Decision Making Course & Med Decision Making Pertinent Labs and Imaging studies reviewed. (See chart for details) he presents with nausea vomiting diarrhea with COPD exacerbation. I will proceed with an appropriate abdominal pain workup to include CMP, lipase , CBC, urinalysis as well as troponin EKG chest x-ray and appropriate reevaluation after fluids antiemetics and steroids are given. Considered upon arrival. Differential diagnosis: Acute myocardial ischemia, heart failure, cardiac tamponade, bronchospasm, pulmonary embolism, pneumothorax, pulmonary infection i.e. bronchitis or pneumonia, upper airway obstruction, anaphylaxis, aspiration , psychogenic, pulmonary contusion, toxidrome, pneumomediastinum, noncardiogenic pulmonary edema or ARDS, COPD, tuberculosis, cystic fibrosis, asthma, high altitude pulmonary edema, valvular dysfunction, cardiac dysrhythmia , stroke, neuromuscular diseases like myasthenia gravis gravis, ALS, Guillain- Camargo syndrome, metabolic acidosis to include diabetic ketoacidosis, sepsis, and obstructive disorders like massive obesity Patient was treated with DuoNeb's, or Medrol, antibiotics fluids antiemetics and Robinul for his abdominal pain. Given his prior history of respiratory failure with narcotic use I'm very hesitant to use any narcotics at this time. Patient's tachycardia was sinus in nature not associated with the dysrhythmia. Patient be admitted to the hospital secondary to minimal improvement of his symptoms despite all of these medications being provided for his breathing problems. Patient is amenable to treatment in the hospital. There is no clear signs of ischemia, pneumonia, pneumothorax, pneumonitis, or URI symptoms. Patient's nausea and vomiting has abated and he has not had any episodes in the ER.. Mica Builder note: A internal medicine Mica Builder called at of the service called at 2:50 PM Consult called back at 2:55 PM Discussed the case I presented and they agreed with admission. Time of acceptance 2:55 PM Impression: COPD exacerbation, medication noncompliance, nausea vomiting diarrhea. Disposition: Admission to the hospital I spent approximately 45-50 minutes working and engaged directly in the patient care providing critical care evaluation this includes but not limited to time spent engaged in work directly related to the individual patients care. I spent time at the bedside, reviewing test results, discussing the case with staff, documenting the medical record and time spent with EMS discussing specific treatment issues when the patient presented and during his evaluation. Dragon Disclaimer Dragon Disclaimer This electronic medical record was generated, in whole or in part, using a voice recognition dictation system. Departure Departure Impression: Primary Impression: [id number] disease Additional Impressions: COPD exacerbation Nausea and vomiting Disposition: ADMITTED INPATIENT Admitting Physician: Edward Michel Condition: IMPROVED Referrals: NO PCP (PCP) Problem Qualifiers CHAVO TERRY MD Mar 02, 2017 13:49
--- NOTE | 2017-03-02 14:00 | RAD ---
Chest, 2 views, 03/02/2017: History: Cough, shortness of breath Comparison is made to a study from 02/02/2017. The heart size and pulmonary vascularity are normal. There is a calcified granuloma in the right middle lobe. No acute infiltrate is seen. There is no evidence of pleural fluid. IMPRESSION: No acute cardiopulmonary abnormality is detected.
[2017-03-02] MEDS: fentaNYL PF VIAL 100 MCG/2 ML VIAL IV PRN ×2 (14:20→14:51)
[2017-03-02 14:36] LABS: BASO # 0.1 x10^3/uL (0.0-0.2); BASO % 1 % (0-3); EOS % 0 % (0-3); HEMATOCRIT 39.2 % (39.0-53.0); HEMOGLOBIN 13.1 g/dL (13.0-17.5); LYMPH % 18 % (24-48); MEAN CORPUSCULAR HEMOGLOBIN 28 pg (25-35); MEAN CORPUSCULAR HGB CONC 33 g/dL (31-37); MEAN CORPUSCULAR VOLUME 85 fL (79-100); MONO % 7 % (0-9); NEUT % 74 % (31-73); PLATELET COUNT 255 x10^3/uL (140-400); RED BLOOD COUNT 4.61 x10^6/uL (4.30-5.70); RED CELL DISTRIBUTION WIDTH 13.6 % (11.5-14.5); WHITE BLOOD COUNT 16.5 x10^3/uL (4.0-11.0)
[2017-03-02] MEDS ORDERED: ACETAMINOPHEN 325 MG TABLET. PO PRN ×2 (15:00→17:00)
[2017-03-02] MEDS ORDERED: CIPROFLOXACIN 400MG PREMIX 200 ML IV ONE (15:00)
[2017-03-02] MEDS ORDERED: ONDANSETRON PF 4 MG/2 ML VIAL. IV PRN ×2 (15:00→17:00)
[2017-03-02 15:03] LABS: CREATININE 0.9 mg/dL (0.7-1.3); POTASSIUM 3.3 mmol/L (3.5-5.1)
[2017-03-02 15:09] LABS: ALBUMIN 3.3 g/dL (3.4-5.0); DIRECT BILIRUBIN 0.1 mg/dL (0.0-0.2); MAGNESIUM 1.9 mg/dL (1.8-2.4); TOTAL BILIRUBIN 0.2 mg/dL (0.2-1.0); TOTAL PROTEIN 6.7 g/dL (6.4-8.2)
[2017-03-02] MEDS: IV NORMAL SALINE 1000ML BAG 1,000 ML IV SCH ×2 (15:10→22:48)
--- NOTE | 2017-03-02 15:27 | ACF ---
Admission Forms Criteria COPD Clinical Indications for Admission to Inpatient Care (Place 'X' for any and all applicable criteria): Admission is indicated for ANY ONE of the following (1)(2)(3): [X]I. Acute exacerbation by high-risk comorbidity (e.g., pneumonia, dysrhythmia, heart failure, pleural effusion, pneumothorax) or severe underlying COPD (e.g., steroid dependent) [ ]II. Inpatient admission required rather than observation care (see Chronic Obstructive Pulmonary Disease: Observation Care) because of ANY ONE of the following: [ ]a) New or pre-existing signs or symptoms of COPD (eg, dyspnea or Tachypnea at rest or with minimal activity) that persist despite outpatient and observation care treatment [ ]b) New-onset hypoxemia (room air SaO2 less than 90%, PO2 less than 60 mm Hg (8.0 kPa)) that persists despite outpatient and observation care treatment [ ]c) Worsening of pre-existing hypoxemia (eg, new or increased requirement for supplemental oxygen to maintain oxygenation at baseline level) that persists despite outpatient and observation care treatment, with oxygen treatment needs performable only in acute inpatient setting [ ]d) Hypercarbia (PCO2 greater than 40 mm Hg (5.3 kPa))-induced respiratory acidosis (pH less than 7.35) that persists despite outpatient and observation care treatment [ ]e) Supplemental oxygen or respiratory treatments for over 24 hours that are performable only in acute inpatient setting [ ]f) Chest tube placement with active evacuation (e.g., suction, drainage) (5) [ ]g) Other condition, treatment or monitoring requiring inpatient admission [ ]III. Planned invasive surgical or diagnostic procedures requiring acute- care hospitalization [ ]IV. Acute respiratory failure (e.g., uncompensated hypercarbia, severe hypoxemia) [ ]V. Severe comorbid condition (e.g., severe steroid myopathy, acute vertebral fracture) that has acutely worsened pulmonary function [ ]. Confusion state, lethargy, obtundation, stupor or coma Extended stay beyond goal length of stay may be needed for (31)(32): [ ]a ) Respiratory Failure. [ ]b) Severe or persisting hypoxemia or hypercarbia [ ]c) Severe or persistent dyspnea [ ]d) Comorbidities (e.g. chronic heart failure, atrial fibrillation with rapid response, pneumonia) [ ]e) Malnutrition The original [facility] content created by [facility] has been revised. The portions of the content which have been revised are identified through the use of italic text or in bold, and [facility] has neither reviewed nor approved the modified material. All other unmodified content is copyright [facility]. Please see references footnoted in the original [facility] edition 2016 Admission Criteria Met?: Yes GARIMA HENLEY Mar 02, 2017 15:27
[2017-03-02] MEDS: IPRATRPIUM/ALBUTEROL 0.5/2.5MG 3 ML NEBU. NEB SCH ×2 (15:37→19:46)
[2017-03-02 15:39] LABS: CREATINE KINASE 16 U/L (39-308)
[2017-03-02 15:42] LABS: CKMB MASS < 0.5 ng/mL (0.0-3.6)
[2017-03-02 15:55] VITALS: BP 142/76
[2017-03-02] MEDS ORDERED: HYDROmorphone 2 MG/ML VIAL IVP PRN (16:30)
[2017-03-02] MEDS ORDERED: diphenhydrAMINE 50 MG/ML VIAL IVP PRN (16:30)
--- NOTE | 2017-03-02 16:43 | EKG ---
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
[2017-03-02 16:51] LABS: HCO3 ABG 20 mmol/L (21-28); PCO2 ABG 31 mmHg (35-46); PH ABG 7.41 (7.35-7.45); PO2 ABG 71 mmHg (85-108); SAT O2 ABG 94 % (92-99)
--- NOTE | 2017-03-02 16:51 | PDOC1 ---
History and Physical Date of Admission Date of Admission 03/02/17 Identification/Chief Complaint Chief Complaint sob Problems: Source Source: Chart review, Patient History of Present Illness History of Present Illness HPI HPI Patient is a 36 year old male with a history of COPD, Bbmgibg-Xqfzi-Iippr disease with peripheral neuropathy, hypertension, prior pneumonia who presents today with sob. Pt was admitted in last 4 days treated for PNA, HE actually signed AMA today since he felt better today, and didnot like [facility] pcp in . pT Said when he went back home, began to feel bad, cough with yellow sputum, sob , then came here. fever, no details. also has N/V, abd pain and diarrhea today. He denies any recent travel outside the country, recent sick contacts as he lives alone he is unemployed on disability. He says fever was improved with Tylenol. His abdominal pain is only when he has nausea and vomiting. The vomiting is been nonbilious nonbloody, diarrhea nonmucoid and nonbloody as well. Pt uses home o2 3l AT Night only. He said since in ER here, was given some meds , then feels sore throat and "throat closed" , sat is 98% with 2 L NC. then got urticaria on the floor as per nurse. Past Medical History Cardiovascular: HTN Pulmonary: Asthma, Bronchitis, COPD, Pulmonary embolus CENTRAL NERVOUS SYSTEM: Periperal neuropathy GI: GERD, Peptic Ulcer disease, Other Past Surgical History Past Surgical History: Other Family History Family History: Family History Unknown Social History Smoke: 1 pack per day ALCOHOL: none Drugs: None Current Problem List Problem List Problems Medical Problems: (1) Kghedcg-Ipmzv-Ohtdj disease Status: Acute (2) COPD exacerbation Status: Acute (3) Nausea and vomiting Status: Acute Current Medications Current Medications Current Medications Medications (Trade) Dose Ordered Sig/Dipti Start Time Stop Time Status Last Admin Dose Admin Acetaminophen (Tylenol) 650 mg PRN Q4HRS PRN 03/02/17 15:00 03/03/17 14:59 Albuterol/ Ipratropium (Duoneb) 3 ml RTQID 03/02/17 16:00 03/03/17 15:59 03/02/17 15:37 3 ML Ciprofloxacin Lactate 200 ml @ 200 mls/hr ONCE ONCE 03/02/17 15:00 03/02/17 15:59 DC 03/02/17 15:08 200 MLS/HR Diphenhydramine HCl (Benadryl) 50 mg PRN Q6HRS PRN 03/02/17 16:30 Fentanyl Citrate (Fentanyl 2ml Vial) 25 mcg PRN Q15MIN PRN 03/02/17 13:45 03/03/17 13:44 03/02/17 14:51 25 MCG Glycopyrrolate (Robinul) 1 mg 1X ONCE 03/02/17 13:45 03/02/17 13:49 DC 03/02/17 14:22 1 MG Hydromorphone HCl (Dilaudid) 0.4 mg PRN Q4HRS PRN 03/02/17 16:30 Methylprednisolone Sodium Succinate (SOLU-Medrol 125MG VIAL) 125 mg 1X ONCE 03/02/17 13:45 03/02/17 13:47 DC 03/02/17 14:18 125 MG Ondansetron HCl (Zofran) 4 mg PRN Q8HRS PRN 03/02/17 15:00 03/03/17 14:59 Sodium Chloride 1,000 ml @ 125 mls/hr Q8H 03/02/17 14:48 03/03/17 14:47 03/02/17 15:10 125 MLS/HR Sodium Chloride (Normal Saline Flush) 10 ml QSHIFT PRN 03/02/17 13:45 03/02/17 14:52 10 ML Allergies Allergies Allergies Coded Allergies Type Severity Reaction Last Updated Verified Penicillins Allergy Intermediate hives 12/12/14 Yes tramadol Allergy Intermediate MORPHINE OK 10/02/16 Yes ibuprofen Adverse Reaction Intermediate "makes my stomach hurt, but I can take morphine" 10/02/16 Yes ROS Review of System CONSTITUTIONAL: No fever or chills EYES: No recent changes SKIN: No rash or itching CARDIOVASCULAR: No chest pain, syncope, palpitations, or edema RESPIRATORY: No SOB or cough GASTROINTESTINAL: No nausea, vomiting or abdominal pain NEUROLOGICAL: No headaches or weakness ENDOCRINE: No cold or heat intolerance GENITOURINARY: No urgency or frequency of urination MUSCULOSKELETAL: No back pain or joint pain LYMPHATICS: No enlarged lymph nodes PSYCHIATRIC: No anxiety or depression Physical Exam Physical Exam anxious. Alert and oriented. HEENT: Head is normocephalic, atraumatic NECK: Supple. LUNGS: bl diffuse wheezing, moderate HEART: RRR, S1, S2 present. Peripheral pulses intact ABDOMEN: Soft, nontender. Positive bowel sounds. EXTREMITIES: Without any cyanosis. NEUROLOGIC: Normal speech, normal tone PSYCHIATRIC: Normal affect, normal mood. SKIN: No ulcerations Vitals Vitals Vital Signs Date Time Temp Pulse Resp B/P (MAP) Pulse Ox O2 Delivery O2 Flow Rate FiO2 03/02/17 15:55 98.5 120 18 142/76 (98) 99 Room Air 98.5 Labs Labs Laboratory Tests Test 03/02/17 14:28 White Blood Count 16.5 x10^3/uL (4.0-11.0) Red Blood Count 4.61 x10^6/uL (4.30-5.70) Hemoglobin 13.1 g/dL (13.0-17.5) Hematocrit 39.2 % (39.0-53.0) Mean Corpuscular Volume 85 fL (79-100) Mean Corpuscular Hemoglobin 28 pg (25-35) Mean Corpuscular Hemoglobin Concent 33 g/dL (31-37) Red Cell Distribution Width 13.6 % (11.5-14.5) Platelet Count 255 x10^3/uL (140-400) Neutrophils (%) (Auto) 74 % (31-73) Lymphocytes (%) (Auto) 18 % (24-48) Monocytes (%) (Auto) 7 % (0-9) Eosinophils (%) (Auto) 0 % (0-3) Basophils (%) (Auto) 1 % (0-3) Neutrophils # (Auto) 12.2 x10^3uL (1.8-7.7) Lymphocytes # (Auto) 3.0 x10^3/uL (1.0-4.8) Monocytes # (Auto) 1.2 x10^3/uL (0.0-1.1) Eosinophils # (Auto) 0.0 x10^3/uL (0.0-0.7) Basophils # (Auto) 0.1 x10^3/uL (0.0-0.2) Sodium Level 141 mmol/L (136-145) Potassium Level 3.3 mmol/L (3.5-5.1) Chloride Level 104 mmol/L (98-107) Carbon Dioxide Level 27 mmol/L (21-32) Anion Gap 10 (6-14) Blood Urea Nitrogen 17 mg/dL (8-26) Creatinine 0.9 mg/dL (0.7-1.3) Estimated GFR (Cockcroft-Gault) 96.0 Glucose Level 83 mg/dL (70-99) Calcium Level 9.0 mg/dL (8.5-10.1) Magnesium Level 1.9 mg/dL (1.8-2.4) Total Bilirubin 0.2 mg/dL (0.2-1.0) Direct Bilirubin 0.1 mg/dL (0.0-0.2) Aspartate Amino Transf (AST/SGOT) 8 U/L (15-37) Alanine Aminotransferase (ALT/SGPT) 20 U/L (16-63) Alkaline Phosphatase 80 U/L (46-116) Creatine Kinase 16 U/L (39-308) Creatine Kinase MB (Mass) < 0.5 ng/mL (0.0-3.6) Creatine Kinase MB Relative Index 3.1 % (0-4) Troponin I Quantitative < 0.017 ng/mL (0.000-0.055) FZ-Rob-H-Type Natriuretic Peptide 312 pg/mL (0-124) Total Protein 6.7 g/dL (6.4-8.2) Albumin 3.3 g/dL (3.4-5.0) Lipase 167 U/L (73-393) Thyroid Stimulating Hormone (TSH) 1.074 uIU/mL (0.358-3.74) Laboratory Tests Test 03/02/17 14:28 White Blood Count 16.5 x10^3/uL (4.0-11.0) Red Blood Count 4.61 x10^6/uL (4.30-5.70) Hemoglobin 13.1 g/dL (13.0-17.5) Hematocrit 39.2 % (39.0-53.0) Mean Corpuscular Volume 85 fL (79-100) Mean Corpuscular Hemoglobin 28 pg (25-35) Mean Corpuscular Hemoglobin Concent 33 g/dL (31-37) Red Cell Distribution Width 13.6 % (11.5-14.5) Platelet Count 255 x10^3/uL (140-400) Neutrophils (%) (Auto) 74 % (31-73) Lymphocytes (%) (Auto) 18 % (24-48) Monocytes (%) (Auto) 7 % (0-9) Eosinophils (%) (Auto) 0 % (0-3) Basophils (%) (Auto) 1 % (0-3) Neutrophils # (Auto) 12.2 x10^3uL (1.8-7.7) Lymphocytes # (Auto) 3.0 x10^3/uL (1.0-4.8) Monocytes # (Auto) 1.2 x10^3/uL (0.0-1.1) Eosinophils # (Auto) 0.0 x10^3/uL (0.0-0.7) Basophils # (Auto) 0.1 x10^3/uL (0.0-0.2) Sodium Level 141 mmol/L (136-145) Potassium Level 3.3 mmol/L (3.5-5.1) Chloride Level 104 mmol/L (98-107) Carbon Dioxide Level 27 mmol/L (21-32) Anion Gap 10 (6-14) Blood Urea Nitrogen 17 mg/dL (8-26) Creatinine 0.9 mg/dL (0.7-1.3) Estimated GFR (Cockcroft-Gault) 96.0 Glucose Level 83 mg/dL (70-99) Calcium Level 9.0 mg/dL (8.5-10.1) Magnesium Level 1.9 mg/dL (1.8-2.4) Total Bilirubin 0.2 mg/dL (0.2-1.0) Direct Bilirubin 0.1 mg/dL (0.0-0.2) Aspartate Amino Transf (AST/SGOT) 8 U/L (15-37) Alanine Aminotransferase (ALT/SGPT) 20 U/L (16-63) Alkaline Phosphatase 80 U/L (46-116) Creatine Kinase 16 U/L (39-308) Creatine Kinase MB (Mass) < 0.5 ng/mL (0.0-3.6) Creatine Kinase MB Relative Index 3.1 % (0-4) Troponin I Quantitative < 0.017 ng/mL (0.000-0.055) ZF-Ltz-B-Type Natriuretic Peptide 312 pg/mL (0-124) Total Protein 6.7 g/dL (6.4-8.2) Albumin 3.3 g/dL (3.4-5.0) Lipase 167 U/L (73-393) Thyroid Stimulating Hormone (TSH) 1.074 uIU/mL (0.358-3.74) VTE Prophylaxis Ordered VTE Prophylaxis Devices: Yes VTE Pharmacological Prophylaxi: Yes Assessment/Plan Assessment/Plan acute resp failure with hypoxia copd exacerbation bronchitis tobaccoism uncompliance, signed AMA in today morbid obesity charcot ethan tooth with neuropathy chronic back pain h/o PE. N/V abd pain, diarrhea, gastroenteritis urticaria, not clear etiology plan: pulm consult duoneb, solumedrol, levaquin, dc cipro benadry prn dvt, gi ppx sputum cx, strep, legi urine Ag ABG pt insist regular diet, if cont N/V will do npo check cdiff, urine tox cepacol lozenge admit >2 nights try to get records from FIDELINA ORTEGA MD Mar 02, 2017 16:51
[2017-03-02 16:54] LABS: FIO2 ABG 21
[2017-03-02] MEDS ORDERED: DOCUSATE SODIUM 100 MG CAPSULE. PO PRN (17:00)
[2017-03-02] MEDS ORDERED: MORPHINE SULFATE 2 MG/ML DISP.SYRIN. IV PRN (17:00)
[2017-03-02] MEDS ORDERED: traMADol 50 MG TABLET PO PRN (17:00)
[2017-03-02] MEDS ORDERED: ALBUTEROL SULFATE 2.5 MG/3 ML NEBU. NEB PRN (17:00)
[2017-03-02] MEDS ORDERED: POTASSIUM CHLORIDE 20 MEQ TABLET.ER. PO ONE (17:00)
[2017-03-02] MEDS ORDERED: hydrALAZINE 20 MG/ML VIAL. IVP PRN (17:00)
[2017-03-02] MEDS ORDERED: oxyCODONE/APAP 10/325 1 TAB TABLET PO PRN (17:00)
[2017-03-02] MEDS ORDERED: BENZOCAINE/MENTHOL LOZENGE. PO PRN (17:00)
[2017-03-02] MEDS: methylPREDNISolone SOD SUCC PF 125 MG/2 ML VIAL. IV SCH ×2 (17:15→21:16)
[2017-03-02] MEDS ORDERED: ENOXAPARIN 40 MG/0.4 ML SYRINGE. SQ SCH (18:00)
[2017-03-02 18:08] LABS: BILIRUBIN,URINE NEGATIVE (NEG); GLUCOSE,URINE NEGATIVE (NEG); NITRITE,URINE NEGATIVE (NEG); PROTEIN,URINE NEGATIVE (NEG-TRACE); UROBILINOGEN,URINE 0.2 mg/dL (0.2 mg/dL)
[2017-03-02 18:16] LABS: BARBITURATES NEG (NEG); BENZODIAZEPINES NEG (NEG); CANNABINOIDS NEG (NEG); COCAINE NEG (NEG); METHADONE NEG (NEG); OPIATES NEG (NEG); PHENCYCLIDINE NEG (NEG)
[2017-03-02 18:17] LABS: BACTERIA,URINE 0 /HPF (0-FEW); RBC,URINE 0 /HPF (0-2); WBC,URINE 0 /HPF (0-4)
[2017-03-02 19:25] VITALS: BP 107/61
[2017-03-02] MEDS ORDERED: IPRATRPIUM/ALBUTEROL 0.5/2.5MG 3 ML NEBU. NEB SCH (20:00)
[2017-03-02] MEDS ORDERED: FAMOTIDINE 20 MG TABLET. PO SCH (21:00)
[2017-03-02] MEDS ORDERED: CIPROFLOXACIN 400MG PREMIX 200 ML IV SCH (23:00)
[2017-03-02 23:10] VITALS: BP 121/73
--- NOTE | 2017-03-03 06:34 | EKG ---
[facility] [address] [place] [address] Test Date: 2017-03-02 Test Time: 13:55:23 Pat Name: CECI PAYNE Department: Room: 260 1 Gender: M [employer]: : 1980 Requested By: FIDELINA MCCLELLAN Order Number: [id number] Reading MD: Measurements Intervals [place] Rate: 105 P: 62 AR: 144 QRS: -2 QRSD: 92 T: 58 QT: 338 QTc: 451 Interpretive Statements SINUS TACHYCARDIA LEFTWARD AXIS OTHERWISE NORMAL ECG RI6.01 Unconfirmed report No previous ECG available for comparison
[2017-03-03 16:18] LABS: SPECIMEN SOURCE Urine (.)
== END 2017-03-03 00:15 | disposition left against medical advice (07) | DRG 189 ==
LOC: ER 13:14 → 2 SOUTH 14:55
PROVIDERS: ADMIT Internal Medicine; ATTEND Internal Medicine
DX: J96.01 Acute respiratory failure with hypoxia (principal); J44.1 Chronic obstructive pulmonary disease with (acute) exacerbation; K52.9 Noninfective gastroenteritis and colitis, unspecified; K21.9 Gastro-esophageal reflux disease without esophagitis; E66.01 Morbid (severe) obesity due to excess calories; F17.210 Nicotine dependence, cigarettes, uncomplicated; G60.0 Hereditary motor and sensory neuropathy; G89.29 Other chronic pain; M54.9 Dorsalgia, unspecified; Z53.21 Procedure and treatment not carried out due to patient leaving prior to being seen by health care provider; I10 Essential (primary) hypertension; J02.9 Acute pharyngitis, unspecified; L50.9 Urticaria, unspecified; Z86.711 Personal history of pulmonary embolism; Z87.01 Personal history of pneumonia (recurrent); Z87.11 Personal history of peptic ulcer disease; Z91.14 Patient's other noncompliance with medication regimen; Z99.81 Dependence on supplemental oxygen; Z68.35 Body mass index [BMI] 35.0-35.9, adult; Z88.6 Allergy status to analgesic agent; Z88.0 Allergy status to penicillin; J40 Bronchitis, not specified as acute or chronic
CPT/HCPCS: 36415; 36600; 71020; 80048; 80076; 81001; 82553; 82805; 83690; 83735; 83880; 84443; 84484; 85027; 87040; 87449; 93005; 94250; 94640; 96361; 96374; 96375; 96376; G0481; J0744; J1200; J1650; J1956; J2405; J2930; J3010; J3490; J7030; J7620; 99291-25

== ENCOUNTER 2017-04-24 15:40 | Emergency (ER) | payer MEDICARE, MEDICAID ==
[~2017-04-24] VITALS: Ht 175.3 cm; Wt 99.8 kg
[2017-04-24 15:40] VITALS: BP 140/88
--- NOTE | 2017-04-24 15:49 | PHYS DOC ---
Past Medical History Past Medical History: Asthma, COPD, Additional Disease Additional Past Medical Histor: CMT, chronic back pain, NERVE DISORDER, pulmonary embolism Past Surgical History: Other Additional Past Surgical Histo: ear tubes, ADENOIDS Alcohol Use: None Drug Use: None Adult General Chief Complaint Chief Complaint: KNEE INJURY [facility] HPI Patient is a 37 year old male presents to the emergency department by way of EMS. Patient states he was at the store when he went to turn and felt a pop in his left knee. He states that he believes that his knee is dislocated. He states that he almost fell however he has had many dislocations in the past. Patient states that he was just discharged from the hospital yesterday for pneumonia. Patient states that he has not used his respiratory treatments since discharge. Patient also states that he has not had any oxycodone as this prescription has the placed. Patient states he has numbness down into his lower foot. Patient denies any further complaints at this time. Review of Systems Review of Systems Constitutional: Denies fever or chills [] Eyes: Denies change in visual acuity, redness, or eye pain [] HENT: Denies nasal congestion or sore throat [] Respiratory: Denies cough or shortness of breath. Complaint wheezing Cardiovascular: No additional information not addressed in HPI [] GI: Denies abdominal pain, nausea, vomiting, bloody stools or diarrhea [] : Denies dysuria or hematuria [] Musculoskeletal: Denies back pain. Complaint of right knee pain Integument: Denies rash or skin lesions [] Neurologic: Denies headache, focal weakness or sensory changes [] Endocrine: Denies polyuria or polydipsia [] Current Medications Current Medications Current Medications Medications (Trade) Dose Ordered Sig/Dipti Start Time Stop Time Status Last Admin Dose Admin Acetaminophen (Tylenol) 650 mg 1X ONCE 04/24/17 16:00 04/24/17 16:01 DC 04/24/17 15:50 650 MG Albuterol/ Ipratropium (Duoneb) 3 ml 1X ONCE 04/24/17 16:00 04/24/17 16:01 DC 04/24/17 16:31 3 ML Allergies Allergies Allergies Coded Allergies Type Severity Reaction Last Updated Verified Penicillins Allergy Intermediate hives 12/12/14 Yes tramadol Allergy Intermediate MORPHINE OK 10/02/16 Yes ibuprofen Adverse Reaction Intermediate "makes my stomach hurt, but I can take morphine" 2/1/17 Yes Physical Exam Physical Exam Constitutional: Well developed, well nourished, no acute distress, non-toxic appearance. [] HENT: Normocephalic, atraumatic, bilateral external ears normal, oropharynx moist, no oral exudates, nose normal. [] Eyes: PERRLA, EOMI, conjunctiva normal, no discharge. [] Neck: Normal range of motion, no tenderness, supple, no stridor. [] Cardiovascular:Heart rate regular rhythm, no murmur [] Lungs & Thorax: Bilateral breath sounds wheezes noted throughout. Skin: Warm, dry, no erythema, no rash. [] Back: No tenderness Extremities: No tenderness noted in the right knee area., no cyanosis, no clubbing, ROM intact, no edema. Peripheral pulses 2+ cap refill brisk less than 2 seconds. Patient with sensation noted in his toes. Neurologic: Alert and oriented X 3, normal motor function, normal sensory function, no focal deficits noted. [] Psychologic: Affect normal, judgement normal, mood normal. [] Current Patient Data Vital Signs Vital Signs Date Time Temp Pulse Resp B/P (MAP) Pulse Ox O2 Delivery O2 Flow Rate FiO2 04/24/17 15:40 98.9 116 20 93 Room Air 98.9 EKG EKG [] Radiology/Procedures Radiology/Procedures [][facility] [address] [place] [address] IMAGING REPORT Signed PATIENT: CECI PAYNE ACCOUNT: [id number] : 1980 LOCATION: ER AGE: 37 SEX: M EXAM STATUS: REG ER ORD. PHYSICIAN: BALBIR VELASQUEZ APRN REASON: twisted knee, patients thinks its dislocated, fell at friends business PROCEDURE: KNEE LEFT 4V Left knee with patella, 4 views, 04/24/2017: History: Knee injury, fall No fracture or dislocation is identified. There is minimal marginal spurring. There is an unchanged periarticular calcification posteriorly which may be a loose body. No significant joint effusion is evident. IMPRESSION: No acute bony abnormality is detected. DICTATED and SIGNED BY: LANE NOBLES MD DATE: 04/24/17 1623 CC: BALBIR VELASQUEZ APRN; UNKNOWN PCP NAME ~ Course & Med Decision Making Course & Med Decision Making Pertinent Labs and Imaging studies reviewed. (See chart for details) X-rays were negative for any abnormality. Patient was provided with a respiratory treatment for his wheezing. He will be discharged home as he has of treatments at home in which she can continue with he has prednisone at home as well. Patient will be placed in a knee immobilizer with recommendations for ice packs on 20 minutes off 20 minutes several times a day. Patient states he is allergic to ibuprofen and tramadol he may take Tylenol for pain and discomfort. He'll be provided with orthopedic name and number to follow up with. Patient was provided with signs and symptoms to return back to the emergency department. Patient will be discharged home in stable condition off questions and concerns and answered for the patient at his bedside. [] Dragon Disclaimer Dragon Disclaimer This electronic medical record was generated, in whole or in part, using a voice recognition dictation system. Departure Departure Impression: Primary Impression: Left knee pain Additional Impression: Wheezing Disposition: 01 HOME, SELF-CARE Condition: STABLE Referrals: NO PCP (PCP) ALAN CHAN MD Patient Instructions: Knee Immobilizer, [id number], Knee Pain, [id number] Additional Instructions: Activity as tolerated Tylenol for pain and discomfort Ice packs on 20 minutes and off 20 minutes several times a day Elevation as much as possible Wear the knee immobilizer until you followup with orthopedic Followup with orthopedic in 5-7 days Return to emergency department as needed for signs and symptoms that become worse. Problem Qualifiers Primary Impression: Left knee pain Chronicity: acute Qualified Codes: M25.562 - Pain in left knee BALBIR VELASQUEZ APRN Apr 24, 2017 15:49
[2017-04-24] MEDS ORDERED: ACETAMINOPHEN 325 MG TABLET. PO ONE (16:00)
[2017-04-24] MEDS ORDERED: IPRATRPIUM/ALBUTEROL 0.5/2.5MG 3 ML NEBU. NEB ONE (16:00)
--- NOTE | 2017-04-24 16:27 | RAD ---
Left knee with patella, 4 views, 04/24/2017: History: Knee injury, fall No fracture or dislocation is identified. There is minimal marginal spurring. There is an unchanged periarticular calcification posteriorly which may be a loose body. No significant joint effusion is evident. IMPRESSION: No acute bony abnormality is detected.
== END 2017-04-24 17:01 | disposition home or self-care (01) ==
LOC: ER 15:40
DX: M25.562 Pain in left knee (principal); R20.0 Anesthesia of skin; R06.2 Wheezing; J44.9 Chronic obstructive pulmonary disease, unspecified; G89.29 Other chronic pain; Z86.711 Personal history of pulmonary embolism; Z88.0 Allergy status to penicillin; Z88.6 Allergy status to analgesic agent; Z88.5 Allergy status to narcotic agent
CPT/HCPCS: 29505; 73564; 94250; 94640; 99284; J7620